=== PATIENT | female | born 1985 | race African-American/Black ===

== ENCOUNTER 2020-01-11 09:20 | Inpatient (IN) | payer MEDICAID ==
[~2020-01-11] VITALS: Ht 170.2 cm; Wt 124.3 kg
[2020-01-11 09:45] LABS: Urine Bacteria NONE SEEN /hpf (None Seen); Urine Blood Negative /uL (Negative); Urine Specific Gravity 1.012 (1.001-1.035); Urine WBC 1 /hpf (0 - 5)
[2020-01-11 10:44] LABS: Basophils # (auto) 0.1 10 ^3/uL (0-0.2); Basophils % (auto) 0.7 % (0.0-2.0); Eosinophils # (auto) 0.3 10 ^3/uL (0-0.8); Eosinophils % (auto) 1.6 % (0.0-7.0); Hematocrit 38.1 % (36.0-46.0); Hemoglobin 12.3 g/dL (12.2-16.2); Lymphocytes # (auto) 1.8 10 ^3/uL (0.4-5.4); Lymphocytes % (auto) 10.8 % (10.0-50.0); Mean Corpuscular Hemoglobin 25.9 pg (28.0-32.0); Mean Corpuscular Hgb Conc. 32.2 g/dL (32.0-36.0); Mean Corpuscular Volume 80.7 fL (80.0-100.0); Monocytes # (auto) 1.1 10 ^3/uL (0-1.3); Monocytes % (auto) 6.5 % (0.0-12.0); Neutrophils # (auto) 13.3 10 ^3/uL (1.6-8.6); Neutrophils % (auto) 80.4 % (37.0-80.0); Nucleated Red Blood Cells % 0.1 %; Platelet Count (auto) 343 10^3/uL (140-450); Red Blood Cells 4.72 10^6/uL (4.0-5.20); Red Cell Distribution Width 15.8 % (11.8-14.3); White Blood Cell 16.6 10^3/uL (4.4-10.8)
[2020-01-11 10:50] LABS: Albumin 3.6 g/dL (3.4-5.0); Calcium 9.3 mg/dL (8.5-10.1); Potassium 3.8 mmol/L (3.5-5.1)
[2020-01-11 10:54] LABS: BUN/Creatinine Ratio 9.9; Bilirubin, Total 0.6 mg/dL (0.2-1.0); Total Protein 8.2 g/dL (6.4-8.2)
[2020-01-11] MEDS ORDERED: metroNIDAZOLE 500MG/100ML 100 ML IV ONE (12:15)
[2020-01-11] MEDS ORDERED: cefTRIAXone 1GM/50ML D5W 50 ML IV ONE ×2 (12:15→14:15)
[2020-01-11] MEDS ORDERED: FAMOTIDINE (10MG/ML) 2ML VL IV ONE (14:15)
[2020-01-11] MEDS ORDERED: ACETAMINOPHEN 500 MG TAB PO PRN (14:15)
--- NOTE | 2020-01-11 15:24 | NUR ---
CALL FROM ER RECEIVED CALL FROM ER STATING THAT THE PATIENT WILL BE COMING UP WITH NO IV, NO REPORT, AND PATIENT HAS NOT BEEN SEEN BY A NURSE. PATIENT IS BEING ADMITTED FROM THE LOBBY.
--- NOTE | 2020-01-11 15:45 | NUR ---
Med SURG admit from ER LOU CHO admitted to Telemetry unit after SBAR received. Patient oriented to Radha dong RN, unit, room, bed, and unit policies regarding patient care and visiting hours. Patient weighed by bedscale and encouraged to call if they need something. All questions and concerns addressed, patient verbalized understanding.
[2020-01-11 16:09] VITALS: BP 149/90
[2020-01-11] MEDS: MORPHINE SULF INJ 2 MG/ML SYRINGE 1ML IV PRN ×2 (16:55→20:56)
[2020-01-11] MEDS: SODIUM CHLORIDE 0.9% 1,000 ML IV SCH ×2 (16:55→22:24)
--- NOTE | 2020-01-11 20:00 | NUR ---
Patient received in bed alert and responsive, IV fluids infusing. Patient reminded of NPO after midnight due to possible procedure in am, patient verbalized understanding.
[2020-01-11] MEDS: metroNIDAZOLE 500MG/100ML 100 ML IV SCH (20:56)
[2020-01-11 22:00] VITALS: BP 120/63
--- NOTE | 2020-01-12 01:30 | NUR ---
COVID SWAB DONE AND SENT TO LAB.
[2020-01-12] MEDS: MORPHINE SULF INJ 2 MG/ML SYRINGE 1ML IV PRN ×3 (04:40→20:22)
[2020-01-12 05:00] VITALS: BP 115/66
[2020-01-12] MEDS: metroNIDAZOLE 500MG/100ML 100 ML IV SCH ×3 (05:18→22:19)
[2020-01-12 06:55] LABS: Basophils # (auto) 0.1 10 ^3/uL (0-0.2); Basophils % (auto) 0.6 % (0.0-2.0); Eosinophils # (auto) 0.2 10 ^3/uL (0-0.8); Eosinophils % (auto) 1.8 % (0.0-7.0); Hematocrit 32.8 % (36.0-46.0); Hemoglobin 10.6 g/dL (12.2-16.2); Lymphocytes # (auto) 1.7 10 ^3/uL (0.4-5.4); Lymphocytes % (auto) 15.3 % (10.0-50.0); Mean Corpuscular Hemoglobin 26.4 pg (28.0-32.0); Mean Corpuscular Hgb Conc. 32.2 g/dL (32.0-36.0); Mean Corpuscular Volume 81.9 fL (80.0-100.0); Monocytes # (auto) 1.1 10 ^3/uL (0-1.3); Monocytes % (auto) 9.9 % (0.0-12.0); Neutrophils # (auto) 8.1 10 ^3/uL (1.6-8.6); Neutrophils % (auto) 72.4 % (37.0-80.0); Platelet Count (auto) 285 10^3/uL (140-450); Red Blood Cells 4.01 10^6/uL (4.0-5.20); Red Cell Distribution Width 16.1 % (11.8-14.3); White Blood Cell 11.2 10^3/uL (4.4-10.8)
[2020-01-12 07:13] LABS: Calcium 8.2 mg/dL (8.5-10.1); Potassium 3.4 mmol/L (3.5-5.1)
[2020-01-12 07:16] LABS: BUN/Creatinine Ratio 10.1
[2020-01-12 07:18] LABS: INR 1.07 (0.9-1.15); Partial Thromboplastin Time 31.8 sec (23.64-32.05)
[2020-01-12 07:19] LABS: Bilirubin, Total 0.8 mg/dL (0.2-1.0); Total Protein 6.8 g/dL (6.4-8.2)
[2020-01-12 08:00] VITALS: BP 144/91
--- NOTE | 2020-01-12 08:00 | NUR ---
OPENING SHIFT NOTE ASSUMED CARE OF PATIENT AWAKE AND ALERT. NO S/S OF DISTRESS NOTED. PATIENT UPDATED ON POC FOR THE DAY AND ALL QUESTIONS ANSWERED. BED IS IN LOWEST, LOCKED POSITION WITH SIDE RAILS UP X2 AND CALL LIGHT WITHIN REACH. WILL CONTINUE TO MONITOR Q1H AND PRN.
[2020-01-12] MEDS: cefTRIAXone 1GM/50ML D5W 50 ML IV SCH (08:33)
[2020-01-12] MEDS: FAMOTIDINE (10MG/ML) 2ML VL IV SCH (09:52)
[2020-01-12] MEDS: SODIUM CHLORIDE 0.9% 1,000 ML IV SCH ×2 (09:53→20:21)
--- NOTE | 2020-01-12 11:23 | NUR ---
OFF UNIT PATIENT TAKEN DOWN TO PREOP WITHOUT INCIDENT
[2020-01-12] MEDS ORDERED: ceFAZolin 1GM/50ML 50 ML IV ONE (11:54)
[2020-01-12] MEDS ORDERED: fentaNYL CITRATE 100 MCG/2 ML VL ONE (12:06)
[2020-01-12] MEDS ORDERED: MIDAZOLAM HCL 1MG/1ML-2 ML VIAL ONE (12:07)
[2020-01-12] MEDS ORDERED: MEPERIDINE HCL (50 MG/ML) 1 ML VIAL ONE (12:07)
[2020-01-12] MEDS ORDERED: SUCCINYLCHOLINE CHLORIDE 20 MG/ML 10ML VIAL IV ONE (12:08)
[2020-01-12] MEDS ORDERED: DexAMETHasone SOD PHOS 10MG/1ML VIAL INJ ONE (12:08)
[2020-01-12] MEDS ORDERED: PROPOFOL 10 MG/ML 20 ML IV ONE (12:08)
[2020-01-12] MEDS ORDERED: ROCURONIUM 10MG/ML 10ML VIAL IV ONE (12:09)
--- NOTE | 2020-01-12 12:46 | NUR ---
Nutrition Assessment Notes please see attached link for complete assessment Est energy needs ABW 90 [id number] kcal (17-20kcal/kg), Est protein needs: 90-99g (1.0-1.1g/kg ABW). Will reassess prn Addendum: 01/12/20 at [address] Amended: Links added.
[2020-01-12] MEDS ORDERED: HYDROmorphone HCL 2 MG/ML VL ONE (14:22)
[2020-01-12] MEDS: HYDROmorphone HCL 2 MG/ML VL IV PRN ×3 (14:24→14:45)
[2020-01-12] MEDS ORDERED: ONDANSETRON HCL 4 MG/2 ML VIAL IV PRN (14:30)
[2020-01-12] MEDS ORDERED: ePHEDrine SULFATE 50 MG/ML AMP IV PRN (14:30)
[2020-01-12] MEDS ORDERED: MORPHINE SULFATE 4 MG/ML SYR/VIAL IV PRN (14:30)
[2020-01-12] MEDS ORDERED: KETOROLAC TROMETH 30 MG/ML 1ML VIAL IV ONE (14:30)
[2020-01-12] MEDS ORDERED: MIDAZOLAM HCL 1MG/1ML-2 ML VIAL IV PRN (14:30)
[2020-01-12] MEDS ORDERED: LABETALOL HCL 5 MG/ML 4ML SYRINGE IV PRN (14:30)
--- NOTE | 2020-01-12 15:20 | NUR ---
BACK TO UNIT PATIENT BROUGHT BACK TO ROOM AFTER REPORT RECEIVED. PATIENT CONNECTED TO 2L NC. 3 ABDOMINAL INCISIONS PRESENT WITH A DIANA DRAIN ON THE RIGHT SIDE. NO S/S OF DISTRESS NOTED. WILL CONTINUE TO MONITOR Q1H AND PRN.
[2020-01-12 17:00] VITALS: BP 145/71
[2020-01-12] MEDS: HYDROcodone-ACET 5/325MG TAB PO PRN (22:20)
[2020-01-12 22:49] VITALS: BP 133/75
[2020-01-13] MEDS: MORPHINE SULF INJ 2 MG/ML SYRINGE 1ML IV PRN ×3 (00:20→20:09)
[2020-01-13 05:43] VITALS: BP 157/89
[2020-01-13] MEDS: metroNIDAZOLE 500MG/100ML 100 ML IV SCH ×3 (06:06→23:01)
[2020-01-13] MEDS: SODIUM CHLORIDE 0.9% 1,000 ML IV SCH ×3 (06:07→23:55)
[2020-01-13 07:16] LABS: Basophils # (auto) 0 10 ^3/uL (0-0.2); Basophils % (auto) 0.3 % (0.0-2.0); Eosinophils # (auto) 0 10 ^3/uL (0-0.8); Hematocrit 32.7 % (36.0-46.0); Hemoglobin 10.4 g/dL (12.2-16.2); Lymphocytes # (auto) 0.8 10 ^3/uL (0.4-5.4); Lymphocytes % (auto) 4.8 % (10.0-50.0); Mean Corpuscular Hemoglobin 26.1 pg (28.0-32.0); Mean Corpuscular Hgb Conc. 31.9 g/dL (32.0-36.0); Mean Corpuscular Volume 81.8 fL (80.0-100.0); Monocytes # (auto) 0.9 10 ^3/uL (0-1.3); Monocytes % (auto) 5.1 % (0.0-12.0); Neutrophils # (auto) 15.5 10 ^3/uL (1.6-8.6); Neutrophils % (auto) 89.8 % (37.0-80.0); Platelet Count (auto) 318 10^3/uL (140-450); Red Cell Distribution Width 15.7 % (11.8-14.3); White Blood Cell 17.2 10^3/uL (4.4-10.8)
[2020-01-13 07:39] LABS: Albumin 2.9 g/dL (3.4-5.0); Calcium 8.7 mg/dL (8.5-10.1); Potassium 3.8 mmol/L (3.5-5.1)
[2020-01-13 07:43] LABS: BUN/Creatinine Ratio 14.3; Bilirubin, Total 0.6 mg/dL (0.2-1.0); Total Protein 7.2 g/dL (6.4-8.2)
--- NOTE | 2020-01-13 08:05 | NUR ---
OPENING SHIFT NOTE: PATIENT AWAKE RESTING IN BED. A/OX4 RESPIRATIONS EVEN AND UNLABORED. PATIENT C/O ABD PAIN AT THIS TIME. BINDER IN PLACE, MIDLINE DRESSING CDI, DIANA DRAINED EMPTIED 100CC SANGUINEOUS FLUID. UPDATED ON PLAN OF CARE. CALL LIGHT WITHIN REACH, FALL PRECAUTIONS IN PLACE, GUARDS AT BEDSIDE, WILL CONTINUE TO MONITOR. Addendum: 01/13/20 at 0849 by ROBBIE YADAV RN RN NO GUARDS PRESENT AT BEDSIDE.
[2020-01-13 09:00] VITALS: BP 123/79
[2020-01-13] MEDS: ONDANSETRON HCL 4 MG/2 ML VIAL IV PRN ×2 (09:02→23:55)
[2020-01-13] MEDS: cefTRIAXone 1GM/50ML D5W 50 ML IV SCH (09:02)
[2020-01-13] MEDS: FAMOTIDINE (10MG/ML) 2ML VL IV SCH (09:02)
[2020-01-13] MEDS: HYDROcodone-ACET 5/325MG TAB PO PRN ×2 (09:03→23:01)
--- NOTE | 2020-01-13 10:17 | NUR ---
PATIENT UP AMBULATING IN UNIT.
[2020-01-13 13:00] VITALS: BP 127/71
[2020-01-13 17:00] VITALS: BP 120/76
--- NOTE | 2020-01-13 19:07 | NUR ---
DIANA OUTPUT: 25CC SANGUINEOUS FLUID OUT OF DIANA DRAIN
--- NOTE | 2020-01-13 19:16 | NUR ---
CARE ENDORSED TO NOC RN.
[2020-01-13 22:00] VITALS: BP 130/78
[2020-01-14 05:00] VITALS: BP 122/81
[2020-01-14] MEDS: metroNIDAZOLE 500MG/100ML 100 ML IV SCH (05:58)
[2020-01-14 06:45] LABS: Albumin 2.6 g/dL (3.4-5.0); Potassium 3.5 mmol/L (3.5-5.1)
[2020-01-14 06:48] LABS: BUN/Creatinine Ratio 12.5; Bilirubin, Total 0.4 mg/dL (0.2-1.0); Total Protein 6.4 g/dL (6.4-8.2)
[2020-01-14 06:56] LABS: Basophils # (auto) 0 10 ^3/uL (0-0.2); Basophils % (auto) 0.3 % (0.0-2.0); Eosinophils # (auto) 0.1 10 ^3/uL (0-0.8); Eosinophils % (auto) 0.8 % (0.0-7.0); Hematocrit 30.9 % (36.0-46.0); Hemoglobin 9.4 g/dL (12.2-16.2); Lymphocytes # (auto) 1.4 10 ^3/uL (0.4-5.4); Lymphocytes % (auto) 14.8 % (10.0-50.0); Mean Corpuscular Hemoglobin 25.9 pg (28.0-32.0); Mean Corpuscular Hgb Conc. 30.3 g/dL (32.0-36.0); Mean Corpuscular Volume 85.5 fL (80.0-100.0); Monocytes # (auto) 0.8 10 ^3/uL (0-1.3); Monocytes % (auto) 8.8 % (0.0-12.0); Neutrophils % (auto) 75.3 % (37.0-80.0); Platelet Count (auto) 273 10^3/uL (140-450); Red Blood Cells 3.62 10^6/uL (4.0-5.20); Red Cell Distribution Width 16.4 % (11.8-14.3); White Blood Cell 9.3 10^3/uL (4.4-10.8)
[2020-01-14] MEDS: FAMOTIDINE (10MG/ML) 2ML VL IV SCH (08:28)
[2020-01-14] MEDS: cefTRIAXone 1GM/50ML D5W 50 ML IV SCH (08:28)
[2020-01-14] MEDS: ONDANSETRON HCL 4 MG/2 ML VIAL IV PRN (08:28)
[2020-01-14] MEDS: MORPHINE SULF INJ 2 MG/ML SYRINGE 1ML IV PRN (08:29)
--- NOTE | 2020-01-14 08:44 | NUR ---
OPENING SHIFT NOTE: PATIENT AWAKE RESTING IN BED. A/OX4 RESPIRATIONS EVEN AND UNLABORED. PATIENT C/O ABD PAIN AT THIS TIME. BINDER IN PLACE, MIDLINE DRESSING CDI, DIANA DRAINED EMPTIED 75CC SANGUINEOUS FLUID. UPDATED ON PLAN OF CARE. CALL LIGHT WITHIN REACH, FALL PRECAUTIONS IN PLACE, WILL CONTINUE TO MONITOR.
[2020-01-14 09:00] VITALS: BP 138/93
--- NOTE | 2020-01-14 12:01 | NUR ---
DISCHARGE: PATIENT GIVEN ALL EDUCATION MATERIALS. VERBALIZED AND RETURNED DEMONSTRATION ON DIANA DRAIN EMPTYING/CARE. EDUCATED ON FOLLOW UP APPOINTMENT. IV REMOVED MANUAL PRESSURE APPLIED. BELONGING LIST REVIEWED WITH PATIENT. SURGEON ASSISTANT TIME FOR RIDE HOME SCHEDULED FOR 12:30.
[2020-01-14 13:00] VITALS: BP 148/94
== END 2020-01-14 13:04 | disposition home or self-care (01) | DRG 710 ==
LOC: ER 09:20 → OVERFLOW 09:21 → CENTRAL 15:39
PROVIDERS: ADMIT Internal Medicine; ATTEND Internal Medicine
PROC: 0FT44ZZ Resection of Gallbladder, Percutaneous Endoscopic Approach (ICD-10-PCS; principal; 2020-01-12 12:20)
DX: A41.9 Sepsis, unspecified organism (principal); K80.00 Calculus of gallbladder with acute cholecystitis without obstruction; E66.01 Morbid (severe) obesity due to excess calories; E11.9 Type 2 diabetes mellitus without complications; Z83.3 Family history of diabetes mellitus; Z82.49 Family history of ischemic heart disease and other diseases of the circulatory system; Z03.818 Encounter for observation for suspected exposure to other biological agents ruled out; Z68.41 Body mass index [BMI] 40.0-44.9, adult
CPT/HCPCS: 36415; 71046; 74176; 80053; 81001; 83605; 83690; 84702; 85025; 85610; 85730; 86850; 86900; 86901; 87040; G0378; J0330; J0690; J0696; J1100; J2250; J2405; J2704; J3490